=== PATIENT | male | born 1995 | race Caucasian/White ===

== ENCOUNTER 2017-05-24 16:13 | Inpatient (IN) | payer MEDICAID, OTHER ==
[~2017-05-24] VITALS: Ht 148.6 cm; Wt 68.0 kg
[2017-05-24 16:49] VITALS: BP 136/64
--- NOTE | 2017-05-24 16:55 | NUR ---
PT AWAKE, ALERT, ACTING AT NEUROLOGICAL BASELINE AT THIS TIME; RR EVEN/UNLABORED; VSS; PT TO LOBBY AWAITING OPEN BED.
--- NOTE | 2017-05-24 16:56 | NUR ---
22M BIB PARENTS C/O N/V & LEFT LOWER ABDOMINAL PAIN X 2WKS PT REFERRED TO ER BY PCP. HX: DOWN SYNDROME. RX: MOTHER DENIES. SKIN IS PINK/WARM/DRY;PT ACTING NEUROLOGICALLY BASELINE. LUNGS CLEAR BL; MOM DENIES PT HAS ANY FEVER, CP, SOB, OR COUGH AT THIS TIME; PAIN OF 4/10 AT THIS TIME; PATIENT POSITIONED FOR COMFORT; HOB ELEVATED; BEDRAILS UP X2; BED DOWN. ER MD MADE AWARE OF PT STATUS.
[2017-05-24] MEDS ORDERED: LORazepam 2 MG/ML VIAL IVP ONE ×2 (17:40→18:30)
[2017-05-24] MEDS ORDERED: NACL 0.9% 1,000 ML IV ONE (17:40)
--- NOTE | 2017-05-24 18:04 | NUR ---
PT TAKEN TO CT VIA GUGLENDA, ACCOMPANIED BY COAL WEIGHER.
[2017-05-24 18:17] LABS: BASOPHILS # (AUTO) 0.2 K/uL (0.00-0.22); BASOPHILS % (AUTO) 3.1 % (0.0-2.0); EOSINOPHILS % (AUTO) 0.8 % (0.0-4.0); HEMATOCRIT 41.7 % (36-52); HEMOGLOBIN 13.3 g/dL (12.0-18.0); LYMPHOCYTES # (AUTO) 0.9 K/uL (2.0-11.5); LYMPHOCYTES % (AUTO) 16.4 % (20.5-51.1); MEAN CORPUSCULAR HEMOGLOBIN 28 pg (27-31); MEAN CORPUSCULAR HGB CONC 32 g/dL (33-37); MEAN CORPUSCULAR VOLUME 88 fL (80-94); MONOCYTES # (AUTO) 0.6 K/uL (0.8-1.0); MONOCYTES % (AUTO) 11.1 % (1.7-9.3); NEUTROPHILS # (AUTO) 3.8 K/uL (1.8-7.7); NEUTROPHILS % (AUTO) 68.6 % (42.2-75.2); PLATELET COUNT (AUTO) 521 K/uL (140-450); RED BLOOD CELL COUNT(AUTO) 4.72 MIL/uL (4.20-6.10); RED CELL DISTRIBUTION WIDTH 14.1 % (11.6-13.7); WHITE BLOOD COUNT (AUTO) 5.5 K/uL (4.8-10.8)
[2017-05-24 18:25] LABS: ANION GAP 13.7 (8-16); CARBON DIOXIDE 26.4 mmol/L (21-32); CREATININE 1.1 mg/dL (0.7-1.3); POTASSIUM 4.1 mmol/L (3.5-5.1)
--- NOTE | 2017-05-24 18:30 | NUR ---
Patient appears to be resting comfortably in bed. Vital Signs within normal limits. Respirations even and unlabored.WILL CONTINUE TO MONITOR.
[2017-05-24 18:31] LABS: ALBUMIN 2.8 g/dL (3.4-5.0); TOTAL BILIRUBIN 0.3 mg/dL (0.0-1.0)
--- NOTE | 2017-05-24 19:10 | NUR ---
REPORT RECEIVED FROM BREANNE EWLDON
--- NOTE | 2017-05-24 19:10 | NUR ---
Pt report given to RENATA RAYMUNDO. Transfer of care at this time.
[2017-05-24 20:15] LABS: APPEARANCE,URINE CLEAR (CLEAR); BILIRUBIN,URINE NEGATIVE (NEGATIVE); BLOOD, URINE NEGATIVE (NEGATIVE); COLOR,URINE YELLOW (YELLOW); LEUKOCYTE ESTERASE ,URINE NEGATIVE (NEGATIVE); NITRITE, URINE NEGATIVE (NEGATIVE); UGLUCOSE NEGATIVE (NEGATIVE)
[2017-05-24] MEDS ORDERED: MORPHINE SULFATE 4 MG/ML SYR IVP PRN (20:40)
[2017-05-24] MEDS ORDERED: ONDANSETRON 4 MG/2 ML VIAL IVP PRN (20:40)
[2017-05-24] MEDS ORDERED: ACETAMINOPHEN 325 MG TAB PO PRN (20:40)
[2017-05-24] MEDS ORDERED: MORPHINE SULFATE 2 MG/ML SYR IVP PRN (20:40)
[2017-05-24 21:30] VITALS: BP 109/64
--- NOTE | 2017-05-24 21:30 | NUR ---
APatient will be admitted to care of DR VEGA. Admited to M/S. Will go to room 112A. Belongings list completed. Report to BREANNE VILLA.
--- NOTE | 2017-05-24 21:30 | NUR ---
RECEIVED PT FROM ER VIA VIOLET PT KENYAN SPEAKER DROWSY AFTER ATIVAN GIVEN IN ER FOLLOW COMMANDS NOT FEVER, HL ON RT AC PATENT, PT HAS A DOWN SYNDROME APHASIC SINCE HE BORN PT MOM AT BED SIDE ALL TIMES ABD DISTENDED PERISTALSIS PRESENT , UMBILICAL HERNIA PT MOM AT BED SIDE ALL TIMES , NOT SOB NOTED MRSA /NARES PROTOCOL TAKEN AND SENT TO LAB INITIAL ASSESSMENT DONE
[2017-05-24] MEDS: DEXT 5% /NACL 0.9% 1,000 ML IV SCH (22:30)
--- NOTE | 2017-05-24 23:00 | NUR ---
PT SLEEPING MOM AT BED SIDE NOT DISTRESS NOTED, IV FLUIDS INFUSING WELL ON RT AC
[2017-05-25] VITALS: BP 101/75
--- NOTE | 2017-05-25 02:00 | NUR ---
PT REMAIN STABLE DENIES ANY PAIN SLEEPING WELL IV ON RT AC INFUSING WELL MOM AT BED SIDE ALL TIMES
[2017-05-25 04:00] VITALS: BP 110/68
--- NOTE | 2017-05-25 04:26 | NUR ---
SPONGE BATH GIVEN LINEN CHANGED IV ON RT AC INFUSING WELL NOT DISTRESS NOTED, MOM AT BED SIDE ALL TIME
--- NOTE | 2017-05-25 06:30 | NUR ---
PT AMBULATES WITH SPRING LAYER TO THE RESTROMM VOIDING WELL AND HAVE ONE BM MOTHER HELP TO BRUSH HIS TEETH VERY COOPERATIVE IV ON RT AC INFUSING WELL
[2017-05-25 06:35] LABS: BASOPHILS # (AUTO) 0.1 K/uL (0.00-0.22); BASOPHILS % (AUTO) 1.3 % (0.0-2.0); EOSINOPHILS % (AUTO) 0.7 % (0.0-4.0); HEMATOCRIT 38.4 % (36-52); HEMOGLOBIN 12.4 g/dL (12.0-18.0); LYMPHOCYTES # (AUTO) 0.8 K/uL (2.0-11.5); LYMPHOCYTES % (AUTO) 12.8 % (20.5-51.1); MEAN CORPUSCULAR HEMOGLOBIN 29 pg (27-31); MEAN CORPUSCULAR HGB CONC 32 g/dL (33-37); MEAN CORPUSCULAR VOLUME 89 fL (80-94); MONOCYTES # (AUTO) 0.6 K/uL (0.8-1.0); MONOCYTES % (AUTO) 8.9 % (1.7-9.3); NEUTROPHILS # (AUTO) 5.1 K/uL (1.8-7.7); NEUTROPHILS % (AUTO) 76.3 % (42.2-75.2); PLATELET COUNT (AUTO) 502 K/uL (140-450); RED BLOOD CELL COUNT(AUTO) 4.34 MIL/uL (4.20-6.10); RED CELL DISTRIBUTION WIDTH 14.2 % (11.6-13.7); WHITE BLOOD COUNT (AUTO) 6.6 K/uL (4.8-10.8)
--- NOTE | 2017-05-25 07:00 | NUR ---
PT RESTING ON BED AAOX1 APHASIC PT IS ENDORSED TO OSMAR FOR CONTINUITY OF CARE
--- NOTE | 2017-05-25 07:01 | NUR ---
RECEIVED REPORT FROM MARINE STEWARD RN. PATIENT IS AAOX1, HAS DOWN SYNDROME AND HAS NEVER TALKED. RESPIRATORY EFFORT EVEN AND UNLABORED. NO SIGNS AND SYMPTOMS OF DISTRESS NOTED AT THIS TIME. PATIENT HAS IV TO RIGHT FA 20G INFUSING D5NS AT 75 ML/HR. SITE IS CLEAN, DRY, PATENT AND INTACT. MOM IS AT THE BEDSIDE. DISCUSSED PLAN OF CARE WITH PATIENTS MOTHER AND SHE VERBALIZED UNDERSTANDING. BED IN LOWEST POSITION, SIDE RAILS UP X2, CALL LIGHT PLACED WITHIN REACH. WILL CONTINUE TO MONITOR.
[2017-05-25 07:08] LABS: PROTHROMBIN TIME 13.6 secs (10.8-13.4)
[2017-05-25 07:14] LABS: ALBUMIN 2.5 g/dL (3.4-5.0); ANION GAP 13.2 (8-16); CARBON DIOXIDE 24.9 mmol/L (21-32); CREATININE 1.1 mg/dL (0.7-1.3); MAGNESIUM 1.8 mg/dL (1.8-2.4); PHOSPHORUS 3.4 mg/dL (2.5-4.9); POTASSIUM 4.1 mmol/L (3.5-5.1); TOTAL BILIRUBIN 0.2 mg/dL (0.0-1.0)
[2017-05-25 08:00] VITALS: BP 102/64
[2017-05-25] MEDS ORDERED: INFLUENZA VIRUS VACCINE QUAD 0.5 ML SYR IMVAC SCH (09:00)
--- NOTE | 2017-05-25 09:06 | NUR ---
PATIENT HAS BEEN SCREENED AND CATEGORIZED MODERATE NUTRITION RISK. PATIENT WILL BE SEEN WITHIN 3-5 DAYS OF ADMISSION. 05/26/17-05/28/[address]
[2017-05-25] MEDS: DEXT 5% /NACL 0.9% 1,000 ML IV SCH ×2 (10:00→20:21)
--- NOTE | 2017-05-25 10:20 | NUR ---
CM NOTE PER [facility] NOVEMBER PH# [phone], SEND REVIEWS ONLY TO [facility] AND FOR ANY DISCHARGE NEEDS TO SEND TO [facility] FAX [phone] PH# [phone]. INITIAL REVIEW FAXED TO [facility] [phone] NOVEMBER PH# [phone] KARENA [phone].
--- NOTE | 2017-05-25 15:40 | NUR ---
OR STAFF HERE TO TAKE PATIENT TO SURGERY. CONSENT IS SIGNED BY PATIENTS MOTHER. CHECKLIST DONE.
[2017-05-25] MEDS: BUPIVACAINE-MPF 0.25% 30 ML VIAL INJ ONE ×2 (16:21→18:35)
[2017-05-25] MEDS ORDERED: ceFAZolin 1,000 MG VIAL ONE (16:21)
[2017-05-25] MEDS: ceFAZolin 1,000 MG VIAL ONE ×2 (16:38→18:35)
[2017-05-25] MEDS ORDERED: GLYCOPYRROLATE 0.2 MG/ML VIAL ONE (17:10)
[2017-05-25] MEDS ORDERED: DEXAMETHASONE 4 MG/ML VIAL ONE (17:10)
[2017-05-25] MEDS ORDERED: PROPOFOL 200 MG/20 ML VIAL IV ONE (17:10)
[2017-05-25] MEDS ORDERED: ONDANSETRON 4 MG/2 ML VIAL ONE (17:10)
[2017-05-25] MEDS ORDERED: ROCURONIUM 50 MG/5 ML VIAL IV ONE (17:10)
[2017-05-25] MEDS ORDERED: DESFLURANE 240 ML BTL INH ONE (17:10)
[2017-05-25] MEDS ORDERED: NEOSTIGMINE 1:1000 10 MG/10 ML VIAL ONE (17:10)
[2017-05-25] MEDS ORDERED: SUCCINYLCHOLINE CHLORIDE 200 MG/10 ML VIAL IVP ONE (17:10)
[2017-05-25] MEDS ORDERED: fentaNYL 0.05 MG/ML VIAL ONE (17:13)
[2017-05-25] MEDS ORDERED: MIDAZOLAM 2 MG/2 ML VIAL ONE (17:13)
[2017-05-25] MEDS ORDERED: MORPHINE SULFATE 4 MG/ML SYR ONE (17:13)
[2017-05-25] MEDS ORDERED: MORPHINE SULFATE 2 MG/ML SYR IVP PRN (18:10)
[2017-05-25] MEDS ORDERED: METOCLOPRAMIDE 10 MG/2 ML INJ VIAL IVP PRN (18:10)
[2017-05-25] MEDS ORDERED: MORPHINE SULFATE 4 MG/ML SYR IVP PRN ×2 (18:10)
[2017-05-25] MEDS ORDERED: MIDAZOLAM 2 MG/2 ML VIAL IV ONE (18:10)
--- NOTE | 2017-05-25 19:24 | NUR ---
ENDORSED PATIENT TO ELECTRONIC EQUIPMENT TRADES WORKER NURSE. PATIENT NOT BACK FROM SURGERY YET.
--- NOTE | 2017-05-25 19:25 | NUR ---
PATIENT IS CURRENTLY NOT IN HIS ROOM HE IS OUT IN SURGERY.
--- NOTE | 2017-05-25 19:30 | NUR ---
Patient's Plan of Care was discussed and reviewed with CHIPPER MACHINE OPERATOR: BAR
--- NOTE | 2017-05-25 19:45 | NUR ---
PATIENT CAME BACK FROM PROCEDURE PATIENT IS CURRENTLY DROWSY AND SLEEPING AT THIS TIME.IV SITE PATENT. PATIENT HAS A DRESSING TO ABDOMEN CURRENTLY DRY AND INTACT AND PATIENT HAS ALSO A PÉREZ CATHETER DRAINING TO GRAVITY YELLOW COLOR URINE.PATIENT HAS ALSO SEQUENTIALS TO BOTH LOWER EXTREMITIES.PATIENT PLACED ON FALL PRECAUTIONS FOR SAFETY AND WAS GIVEN YELLOW SOCKS AND YELLOW WRIST BAND.FAMILY IS ASKING IF SOMEONE CAN STAY WITH THE PATIENT JESSEE MOTHER STATES,"MY SON GETS EXTREMELY CONFUSED IF HE DOESN'T SEE ANYONE FAMILIAR AND YESTERDAY HE PULLED HIS IV LINE THREE TIMES." MOTHER ASKING ME IF PATIENT HAS PAIN MEDICATION AND MEDICATION FOR ANXIETY AND I TOLD HER I WILL CHECK HIS MEDS, AND SHE ALSO WANTS ME TO ASK SECURITY PATROL DRIVER IF SOMEONE CAN STAY THE NIGHT WITH HIM.
[2017-05-25 20:00] VITALS: BP 111/63
--- NOTE | 2017-05-25 20:00 | NUR ---
I INFORMED THE FAMILY THAT SET UP AND CHARGER NURSE SIMONA SAID THAT A FAMILY MEMBER CAN STAY BUT SHE NEEDS TO NOT USE THE OTHER BED IN CASE WE GET MORE PATIENTS. FAMILY MEMBERS VERY UNDERSTANDING SAID THEY WON'T USE THE BED AND SAID THEY WERE HAPPY SOMEONE WAS ALLOWED TO STAY THE NIGHT. I TOLD THE FAMILY STAYING IF THEY NEED ANYTHING TO LET ME KNOW SO THEY CAN BE COMFORTABLE.CALL LIGHT WITHIN REACH.
--- NOTE | 2017-05-25 20:49 | NUR ---
PATIENT IS CURRENTLY SLEEPING CALM BUT OPENS EYES WHEN IM CHECKING HIS VITAL SIGNS.IVF INFUSING WELL IV SITE SECURED WITH ARM BOARD AND ROLLER GAUZE.FAMILY MEMBER AT BEDSIDE STAYING WITH THE PATIENT TONIGHT.PERMISSION GIVEN BY RN HEMO DIALYSIS NURSE BREANNE JARVIS.CALL LIGHT AND FREQUENT VISUAL CHECKS DONE.
--- NOTE | 2017-05-25 21:16 | NUR ---
PATIENT IS CURRENTLY SLEEPING IVF INFUSING WELL NO SIGNS OF PAIN OR DISCOMFORT.PÉREZ CATHETER DRAINING TO GRAVITY.FAMILY AT BEDSIDE.
[2017-05-26 00:30] VITALS: BP 124/98
--- NOTE | 2017-05-26 00:35 | NUR ---
PATIENT CURRENTLY SLEEPING IN BED NO DISTRESS.
[2017-05-26] MEDS: LORazepam 2 MG/ML VIAL IVP PRN ×3 (02:17→21:36)
--- NOTE | 2017-05-26 02:53 | NUR ---
PATIENT IS CURRENTLY SLEEPING IN BED.IVF INFUSING WELL IV SITE PATENT DRESSING TO ABD CURRENTLY DRY AND INTACT. PATIENT PÉREZ CATHETER TO GRAVITY DRAINING WELL.FAMILY AT BEDSIDE SITTING IN A CHAIR.FREQUENT VISUAL CHECKS WILL BE DONE WILL CONTINUE TO MONITOR.
[2017-05-26 04:45] VITALS: BP 108/56
--- NOTE | 2017-05-26 04:55 | NUR ---
PATIENT WAS CLEANED AND TURNED FOR REPOSITIONED FOR COMFORT CLEAN GOWN GIVEN TO THE PATIENT.GOOD MOUTH CARE GIVEN TO THE PATIENT.IVF INFUSING WELL IV SITE PATENT.DRESSING TO ABDOMEN CURRENTLY DRY AND INTACT.PÉREZ CATHETER TO GRAVITY DRAINING YELLOW COLOR URINE.CALL LIGHT WITHIN REACH WILL CONTINUE TO MONITOR.
--- NOTE | 2017-05-26 06:35 | NUR ---
PATIENT STABLE SLEEPING WELL IN BED.
[2017-05-26 07:21] LABS: BASOPHILS % (AUTO) 0.3 % (0.0-2.0); EOSINOPHILS % (AUTO) 0.1 % (0.0-4.0); HEMATOCRIT 35.3 % (36-52); HEMOGLOBIN 11.6 g/dL (12.0-18.0); LYMPHOCYTES # (AUTO) 0.8 K/uL (2.0-11.5); LYMPHOCYTES % (AUTO) 7.4 % (20.5-51.1); MEAN CORPUSCULAR HEMOGLOBIN 28 pg (27-31); MEAN CORPUSCULAR HGB CONC 33 g/dL (33-37); MEAN CORPUSCULAR VOLUME 86 fL (80-94); MONOCYTES # (AUTO) 0.5 K/uL (0.8-1.0); MONOCYTES % (AUTO) 4.9 % (1.7-9.3); NEUTROPHILS # (AUTO) 9.6 K/uL (1.8-7.7); NEUTROPHILS % (AUTO) 87.3 % (42.2-75.2); PLATELET COUNT (AUTO) 480 K/uL (140-450); RED CELL DISTRIBUTION WIDTH 13.9 % (11.6-13.7); WHITE BLOOD COUNT (AUTO) 10.9 K/uL (4.8-10.8)
--- NOTE | 2017-05-26 07:43 | NUR ---
PATIENT STABLE SLEEPING IN BED REPORT ENDORSED TO BREANNE GARCIA.
--- NOTE | 2017-05-26 07:50 | NUR ---
RECEIVED PATIENT REPORT AT BEDSIDE, PATIENT IS SLEEPING AND EASILY AROUSABLE WITH VOICE. PATIENT HAS DOWN SYNDROME, AND IS NONVERBAL. PATIENT SHOWS NO S/S OF ACUTE DISTRESS ON ROOM AIR, NO C/O OF PAIN. IV NOTED ON THE RT HAND WITH IVF'S INFUSING WELL. NOTED DRX CLEAN DRY AND INTACT ON THE ABD. PÉREZ CATHETER IN PLACE WITH YELLOW CLEAR URINE. SCD'S IN PLACE. SAFETY PRECAUTIONS IN PLACE. PATIENT HAS FAMILY AT BEDSIDE AND WAS DISCUSSED POC FOR TODAY. FAMILY VERBALIZED UNDERSTANDING. THE BED IS IN LOW POSITION WITH CALL LIGHT WITHIN REACH. WILL CONTINUE TO MONITOR.
[2017-05-26 08:00] VITALS: BP 117/64
--- NOTE | 2017-05-26 10:00 | NUR ---
FAMILY AT BEDSIDE, PATIENT RESTING AND SHOWS NO S/S OF ACUTE DISTRESS.
--- NOTE | 2017-05-26 11:30 | NUR ---
PATIENT HAS FLACC OF 9. MORPHINE 4 MG IVP WAS GIVEN. WILL REASSESS FOR PAIN IN 30 MIN.
--- NOTE | 2017-05-26 11:35 | NUR ---
PATIENT IS GETTING PERINEAL CARE AND REPOSITIONED. PATIENT TOLERATING ACTIVITY WELL.
--- NOTE | 2017-05-26 12:00 | NUR ---
PATIENT HAS FLACC OF 0, PATIENT RESTING COMFORTABLY IN BED WITH FAMILY AT BEDSIDE.
[2017-05-26] MEDS: DEXT 5% /NACL 0.9% 1,000 ML IV SCH (12:44)
--- NOTE | 2017-05-26 13:05 | NUR ---
IV ABX WAS ADMINISTERED AND INFUSING WELL. ALL NEEDS MET AT THIS TIME. WILL CONTINUE TO MONITOR. PATIENT FAMILY AT BEDSIDE.
--- NOTE | 2017-05-26 14:35 | NUR ---
PATIENT'S FAMILY AT BEDSIDE. PATIENT IS RESTING AND SHOWS NO S/S OF ACUTE DISTRESS ON ROOM AIR. WILL CONTINUE TO MONITOR.
--- NOTE | 2017-05-26 14:56 | NUR ---
PATIENT IS RESTLESS IN BED, FAMILY REQUEST TO GIVE SOMETHING FOR ANXIETY. ATIVAN 2MG IVP WAS GIVEN. WILL CONTINUE TO MONITOR.
[2017-05-26 16:00] VITALS: BP 116/73
--- NOTE | 2017-05-26 17:30 | NUR ---
PROVIDED PATIENT WITH DRX CHANGE ON THE ABD. INCISION IS CLEAN WITH MINIMAL SEROSANGUINEOUS DRAINAGE NOTED OLD DRX CHANGE. PATIENT HAS 18 VAHID AND 4 SUTURES. PT TOLERATED ACTIVITY WELL. APPLIED 4X4 GAUZE AND ABD PAD AND SECURED WITH TAPE. WILL CONTINUE TO MONITOR.
--- NOTE | 2017-05-26 19:20 | NUR ---
GAVE PATIENT REPORT AT BEDSIDE. PATIENT ENDORSED IN STABLE CONDITION.
--- NOTE | 2017-05-26 19:35 | NUR ---
RECEIVED REPORT FROM DAY NURSE COLEMAN RAYMUNDO, PT IS AAOX1, PT HAS DOWN SYNDROME. PT HAS IV TO THE RH 20G, PATENT AND INTACT, INFUSING WELL. PT HAS 18 VAHID AND 4 SUTURES COVERED BY A DRESSING THAT IS DRY AND INTACT. SKIN IS WARM AND DRY TO TOUCH. NO S/S OF DISTRESS NOTED. RESPIRATIONS ARE EVEN AND UNLABORED. PLAN OF CARE DISCUSSED WITH PT AND MOTHER AT THE BEDSIDE, VERBALIZED UNDERSTANDING. ALL SAFETY PRECAUTIONS MET, CALL LIGHT WITHIN REACH, WILL CONTINUE TO MONITOR. Addendum: 05/26/17 at 1947 by Alisha Krueger RN TIME CORRECTION: 1920
--- NOTE | 2017-05-26 20:30 | NUR ---
PT RIPPED ABD DRESSING OFF, ENFORCED DRESSING BACK IN PLACE. DRY AND INTACT. NO DRAINAGE NOTED.
--- NOTE | 2017-05-26 21:36 | NUR ---
MOM REQUESTED FOR PT TO HAVE ATIVAN BECAUSE HE IS AGITATED AND PULLING ON DRESSING, THROWING PILLOWS, PULLING ON PÉREZ CATHETER. ATIVAN ADMINISTERED AND PT TOLERATED WELL
--- NOTE | 2017-05-26 21:45 | NUR ---
PT PULLED OFF DRESSING AGAIN, SMALL AMOUNT OF SEROSANGUINEOUS DRAINAGE NOTED. NEW DRESSING APPLIED AND WOUND CARE PROVIDED. ABD BINDER IN PLACE LOOSELY TO KEEP PT FROM PULLING ON DRESSING AND VAHID.
[2017-05-27] VITALS: BP 122/72
[2017-05-27] MEDS: LORazepam 2 MG/ML VIAL IVP PRN (01:41)
[2017-05-27] MEDS: DEXT 5% /NACL 0.9% 1,000 ML IV SCH (01:44)
[2017-05-27 07:02] LABS: BASOPHILS % (AUTO) 0.4 % (0.0-2.0); EOSINOPHILS % (AUTO) 0.2 % (0.0-4.0); HEMATOCRIT 34.1 % (36-52); HEMOGLOBIN 11.1 g/dL (12.0-18.0); LYMPHOCYTES % (AUTO) 12.2 % (20.5-51.1); MEAN CORPUSCULAR HEMOGLOBIN 29 pg (27-31); MEAN CORPUSCULAR HGB CONC 33 g/dL (33-37); MEAN CORPUSCULAR VOLUME 88 fL (80-94); MONOCYTES # (AUTO) 0.8 K/uL (0.8-1.0); MONOCYTES % (AUTO) 10.6 % (1.7-9.3); NEUTROPHILS # (AUTO) 6.2 K/uL (1.8-7.7); NEUTROPHILS % (AUTO) 76.6 % (42.2-75.2); PLATELET COUNT (AUTO) 447 K/uL (140-450); RED BLOOD CELL COUNT(AUTO) 3.88 MIL/uL (4.20-6.10)
--- NOTE | 2017-05-27 07:15 | NUR ---
GAVE REPORT TO DAY NURSE COLEMAN RAYMUNDO, FOR CONTINUITY OF CARE. PT IN STABLE CONDITION. NO S/S OF DISTRESS NOTED.
[2017-05-27 07:16] LABS: ALBUMIN 2.3 g/dL (3.4-5.0); ANION GAP 11.2 (8-16); CARBON DIOXIDE 25.7 mmol/L (21-32); POTASSIUM 3.9 mmol/L (3.5-5.1); TOTAL BILIRUBIN 0.3 mg/dL (0.0-1.0)
--- NOTE | 2017-05-27 07:17 | NUR ---
RECEIVED PATIENT REPORT AT BEDSIDE, PATIENT IS SLEEPING AND EASILY AROUSABLE WITH VOICE. PATIENT HAS DOWN SYNDROME, AND IS NONVERBAL HOWEVER DOES MUMBLE. PATIENT SHOWS NO S/S OF ACUTE DISTRESS ON ROOM AIR, NO C/O OF PAIN AT THIS TIME. IV NOTED ON THE RT HAND WITH IVF'S INFUSING WELL. NOTED DRX CLEAN DRY AND INTACT ON THE ABD. PÉREZ CATHETER IN PLACE WITH YELLOW CLEAR URINE. SCD'S IN PLACE. SAFETY PRECAUTIONS IN PLACE. PATIENT'S MOTHER AT BEDSIDE AND WAS DISCUSSED POC FOR TODAY. FAMILY VERBALIZED UNDERSTANDING. THE BED IS IN LOW POSITION WITH CALL LIGHT WITHIN REACH. WILL CONTINUE TO MONITOR.
[2017-05-27 08:00] VITALS: BP 101/66
--- NOTE | 2017-05-27 09:15 | NUR ---
SPOKE WITH DR KNAPP. STATED TO PLACE ORDERS FOR FULL LIQUID DIET, DC PÉREZ CATHETER, AND IS OKAY TO DC. PATIENT IS TO F/U WITH IN ONE WEEK. WILL PLACE ORDERS.
--- NOTE | 2017-05-27 09:25 | NUR ---
DISCONTINUED PÉREZ CATHETER WITH CLEAR YELLOW URINE 600CC. PATIENT'S MOTHER AT BEDSIDE AND IS AWARE TO LET RN KNOW WHEN PATIENT URINATES AND AMB TO ASSIST PATIENT. FAMILY MEMBER VERBALIZED UNDERSTANDING. WILL CONTINUE TO MONITOR.
[2017-05-27] MEDS ORDERED: ACET-2869 PO (09:45)
--- NOTE | 2017-05-27 11:20 | NUR ---
PATIENT ENCOURAGED TO GET UP AND EAT LUNCH. FAMILY AT BEDSIDE AND SCOTTIE ASSISTING.
--- NOTE | 2017-05-27 11:41 | NUR ---
PATIENT AMB TO RR WITH STEADY GAIT AND ASSISTANCE FROM PATIENT'S MOTHER. PATIENT URINATED CLEAR YELLOW URINE. PATIENT TOLERATED FULL LIQUID DIET. NO EMESIS OR NAUSEA NOTED.
--- NOTE | 2017-05-27 12:10 | NUR ---
PATIENT'S MOTHER SIGNED ALL DISCHARGE INSTRUCTIONS. ALL PRESCRIPTIONS AND BELONGINGS WITH PATIENT'S MOTHER. IV WAS DISCONTINUED WITH CANNULA INTACT. WRISTBANDS AND TELE MONITOR REMOVED. PATIENT SHOWS NO S/S OF ACUTE DISTRESS AT THIS TIME. WILL ADMINISTER FLU VACCINE ORDERED BEFORE DISCHARGE.
--- NOTE | 2017-05-27 12:30 | NUR ---
PATIENT HAS BEEN DISCHARGED. PATIENT HAS NO C/O PAIN. PATIENT LEFT UNIT IN WHEELCHAIR WITH FAMILY PRESENT AT BEDSIDE. PATIENT LEFT IN STABLE CONDITION.
== END 2017-05-27 12:30 | disposition home or self-care (01) | DRG 229 ==
LOC: MED 16:13 → MTU 20:52
PROVIDERS: ADMIT Internal Medicine; ATTEND Internal Medicine
PROC: 0DBW0ZX Excision of Peritoneum, Open Approach, Diagnostic (ICD-10-PCS; 2017-05-25)
PROC: 0W9G0ZZ Drainage of Peritoneal Cavity, Open Approach (ICD-10-PCS; 2017-05-25)
PROC: 0DJU4ZZ Inspection of Omentum, Percutaneous Endoscopic Approach (ICD-10-PCS; principal; 2017-05-25 13:30)
PROC: 0DBU0ZX Excision of Omentum, Open Approach, Diagnostic (ICD-10-PCS; 2017-05-25 13:30)
DX: K65.9 Peritonitis, unspecified (principal); C78.6 Secondary malignant neoplasm of retroperitoneum and peritoneum; R18.8 Other ascites; E44.0 Moderate protein-calorie malnutrition; C80.1 Malignant (primary) neoplasm, unspecified; F79 Unspecified intellectual disabilities; D72.829 Elevated white blood cell count, unspecified; K43.9 Ventral hernia without obstruction or gangrene; R10.9 Unspecified abdominal pain; Q90.9 Down syndrome, unspecified; Z68.30 Body mass index [BMI] 30.0-30.9, adult
CPT/HCPCS: 36415; 71010; 80053; 81003; 82150; 83690; 83735; 84100; 85025; 85610; 85730; 87081; 88305; 88312; 90658; 93005; 96361; 96374; 96376; 99285; C1758; J0330; J0690; J0694; J1100; J1644; J2060; J2250; J2270; J2405; J2704; J2710; J3010; J3490; J7030; J7042; J7060; Q0092